=== PATIENT | male | born 1950 | race Caucasian/White ===

== ENCOUNTER → 2018-05-19 14:45 | Outpatient (CLI) | payer OTHER, SELFPAY ==
--- NOTE | 2018-05-19 14:54 | RAD_ITS ---
STUDY: X-RAY - CERVICAL SPINE REASON FOR EXAM: Male, 68 years old. Neck pain. TECHNIQUE: 3 view(s) of the cervical spine were obtained. COMPARISON: None FINDINGS: Normal anterior atlantoaxial articulation. Normal odontoid process. There is straightening of the normal cervical lordosis. There is multi-level endplate spondylosis. There is multi-level degenerative disc disease with multilevel disc space narrowing. Normal visualized intervertebral neuroforamina. Findings suggestive of either old avulsion fracture of the posterior aspect of the C7 transverse process or focal calcification of the nuchal ligament. RAD/Cerv Spine 2 or 3 Views IMPRESSION: Marked degree of multilevel anterior spondylosis and disc space narrowing at the C5-C6 and C6-C7 levels. Electronically Signed: Yayo Delarosa MD at 15:15 EDT Tel [phone], Service support ,
--- NOTE | 2018-05-19 14:54 | RAD_ITS ---
STUDY: X-RAY - THORACIC SPINE REASON FOR EXAM: Male, 68 years old. Pain. TECHNIQUE: AP and lateral view(s) of the thoracic spine were obtained. COMPARISON: None. FINDINGS: Normal kyphosis of the thoracic spine. There is no substantial scoliosis. There is multilevel endplate spondylosis of the thoracic vertebrae. There is multilevel disc space narrowing of the thoracic spine. The soft tissue structures are unremarkable. RAD/Thoracic Spine 2 Views IMPRESSION: Multilevel spondylosis and disc space narrowing. Electronically Signed: Yayo Delarosa MD at 15:14 EDT Tel [phone], Service support ,
== END ==
PROVIDERS: Family Provider Family Medicine; PCP Family Medicine; Visit Provider Family Medicine
DX: M79.2 Neuralgia and neuritis, unspecified (principal); M54.2 Cervicalgia
CPT/HCPCS: 72040; 72070